=== PATIENT | male | born 1995 | race Caucasian/White ===

== ENCOUNTER 2017-08-08 18:38 | Emergency (ER) | payer OTHER ==
[~2017-08-08] VITALS: Ht 172.7 cm; Wt 80.7 kg
[2017-08-08 19:12] LABS: ABSOLUTE NEUTROPHILS 9.2 thou/uL (1.4-8.2); BASOPHILS 0.6 % (0.0-2.0); EOSINOPHILS 2.3 % (0.0-3.0); HEMATOCRIT 43.6 % (42.0-52.0); HEMOGLOBIN 15.2 gm/dL (14.0-18.0); LYMPHOCYTES 21.5 % (24.0-44.0); MCH 29.1 pg (26.0-34.0); MCHC 34.8 g/dL (28.0-37.0); MCV 83.6 fL (80.0-100.0); MONOCYTES 5.7 % (1.0-8.0); PLATELET COUNT 233 thou/uL (150-400); POLYS 69.9 % (36.0-66.0); RBC 5.21 mil/uL (4.50-6.00); RDW 12.6 % (10.5-14.5); WBC 13.1 thou/uL (4.0-11.0)
[2017-08-08 19:22] LABS: CALCIUM 9.8 mg/dL (8.5-10.1); CREATININE 0.8 mg/dL (0.7-1.3); POTASSIUM 3.4 mmol/L (3.5-5.1)
[2017-08-08 19:23] LABS: PROTIME 9.8 Seconds (9.3-11.4)
[2017-08-08 19:28] LABS: ALBUMIN 4.3 g/dL (3.4-5.0); TOTAL BILIRUBIN 0.6 mg/dL (<0.1-1.0); TOTAL PROTEIN 8.1 g/dL (6.4-8.2)
[2017-08-08] MEDS ORDERED: NORCO 5-325 TA1 EACH PO (20:02)
[2017-08-08] MEDS ORDERED: BACTROBAN CREAM30 G1 TOP (20:03)
[2017-08-08 20:12] VITALS: BP 132/79
== END 2017-08-08 20:17 | disposition home or self-care (01) ==
LOC: EDBD 18:38 → ER 18:38
PROVIDERS: Physician Assistant
DX: S09.90XA Unspecified injury of head, initial encounter (principal); M54.2 Cervicalgia; M79.621 Pain in right upper arm; M25.511 Pain in right shoulder; M25.531 Pain in right wrist; M25.522 Pain in left elbow; M25.561 Pain in right knee; M25.562 Pain in left knee; M79.641 Pain in right hand; Z23 Encounter for immunization; V03.09XA Pedestrian with other conveyance injured in collision with car, pick-up truck or van in nontraffic accident, initial encounter; Y93.89 Activity, other specified; Y92.89 Other specified places as the place of occurrence of the external cause; Y99.8 Other external cause status